=== PATIENT | male | born 1980 | race Caucasian/White ===

== ENCOUNTER 2024-12-20 08:49 | Day surgery (SDC) | payer BC ==
[~2024-12-20] VITALS: Ht 185.4 cm; Wt 176.9 kg
[~2024-12-20 08:49] MED LIST: C COMPLEX1000 M1 PO; Lactated Ringer's 1,000 ML IV SCH; MULTI-VITAMIN1 EAC2 PO; TRIDERM28.4 GM TOP; Vitamin B Comple1 EA PO; Zinc Gluconate100 MG PO
[2024-12-20 09:13] VITALS: BP 162/82
--- NOTE | 2024-12-20 09:24 | NUR ---
Ambulatory in Day Surgery History, Chart, Medications and Allergies reviewed before start of procedure. Pre-Op teaching done. Pt verbalizes understanding. Patient States Post-Procedure ride home has been arranged.
[2024-12-20] MEDS ORDERED: propofoL 40 ML IV ONE (09:40)
--- NOTE | 2024-12-20 09:50 | NUR ---
12/20/24 [id number] Pedro Osborne History, Chart, Medications and Allergies reviewed before start of procedure. MONITOR INTACT WITH CONTINUOUS PULSE OXIMETRY, CONTINUOUS END TITAL CO2, 3-LEAD EKG AND INTERMITTENT BLOOD PRESSURE. 3-LEAD EKG REVIEWED WITH PHYSICIAN PRIOR TO START OF PROCEDURE. O2 VIA POM INTACT THROUGHOUT SEDATION/PROCEDURE.
[2024-12-20 10:19] VITALS: BP 154/78
--- NOTE | 2024-12-20 10:20 | NUR ---
PT TO DAY SURGERY STEP DOWN FROM COLONOSCOPY. BEDSIDE REPORT RECEIVED. PT IS AWAKE, ALERT AND ORIENTED; ABLE TO MOVE SELF IN BED. NO COMPLAINTS. AT BEDSIDE
[2024-12-20 10:30] VITALS: BP 144/87
--- NOTE | 2024-12-20 10:37 | NUR ---
PT TOLERATING PO FLUIDS WELL. Discharge instructions reviewed with patient. Patient verbalizes understanding. Copy given to patient to take home. Patient States Post-Procedure ride home has been arranged.
[2024-12-20 10:44] VITALS: BP 120/82
--- NOTE | 2024-12-20 10:59 | NUR ---
Patient up to Ambulate independently. Gait steady. Up to bathroom. Discharged via wheelchair to private car for ride home.
== END 2024-12-20 11:00 | disposition home or self-care (01) ==
LOC: ORSCMMR 08:49 → ORD 10:15 → ORSCMMR 10:15
PROVIDERS: Internal Medicine Gastroenterology
PROC: 0DBL8ZX Excision of Transverse Colon, Via Natural or Artificial Opening Endoscopic, Diagnostic (ICD-10-PCS; principal; 2024-12-20 10:00)
PROC: 0DBK8ZX Excision of Ascending Colon, Via Natural or Artificial Opening Endoscopic, Diagnostic (ICD-10-PCS; principal; 2024-12-20 10:00)
DX: Z12.11 Encounter for screening for malignant neoplasm of colon (principal); Z86.0101 Personal history of adenomatous and serrated colon polyps; Z80.0 Family history of malignant neoplasm of digestive organs; D12.2 Benign neoplasm of ascending colon; D12.3 Benign neoplasm of transverse colon; K64.4 Residual hemorrhoidal skin tags; I10 Essential (primary) hypertension; K21.9 Gastro-esophageal reflux disease without esophagitis; F17.210 Nicotine dependence, cigarettes, uncomplicated; E66.01 Morbid (severe) obesity due to excess calories; Z68.43 Body mass index [BMI] 50.0-59.9, adult
CPT/HCPCS: 88305; J2704; J7120

== ENCOUNTER 2024-12-26 11:50 | Emergency (ER) | payer OTHER, BC ==
[~2024-12-26] VITALS: Ht 185.4 cm; Wt 172.4 kg
[~2024-12-26 11:50] MED LIST changes: -Lactated Ringer's 1,000 ML IV SCH
[2024-12-26] MEDS ORDERED: Ketorolac Tromethamine 30mg Vial IV ONE (12:00)
[2024-12-26 13:03] VITALS: BP 140/100
[2024-12-26] MEDS ORDERED: IBUP800 PO (13:21)
== END 2024-12-26 13:45 | disposition home or self-care (01) ==
LOC: ER 11:50
DX: S70.11XA Contusion of right thigh, initial encounter (principal); Z87.891 Personal history of nicotine dependence; Z79.899 Other long term (current) drug therapy; V84.9XXA Unspecified occupant of special agricultural vehicle injured in nontraffic accident, initial encounter
CPT/HCPCS: 73552; 96374; 99283-25; J1885